=== PATIENT | male | born 1980 | race African-American/Black ===

== ENCOUNTER 2023-08-31 02:28 | Inpatient (IN) | payer BC ==
[~2023-08-31] VITALS: Ht 190.5 cm; Wt 120.5 kg
[2023-08-31 03:26] LABS: BASOPHILS % (AUTO) 0.8 % (0-1); EOSINOPHILS # (AUTO) 0.1 X10'3 (0-0.9); EOSINOPHILS % (AUTO) 1.3 % (0-6); HEMATOCRIT 41.5 % (42.0-52.0); LYMPHOCYTES # (AUTO) 1.4 X10'3 (1.1-4.8); LYMPHOCYTES % (AUTO) 27.2 % (21-51); MEAN CORPUSCULAR HEMOGLOBIN 32.5 PG (27.0-31.0); MEAN CORPUSCULAR HGB CONC 33.7 g/dL (33.0-36.5); MEAN CORPUSCULAR VOLUME 96.3 FL (78-98); MEAN PLATELET VOLUME 9.2 FL (7.4-10.4); MONOCYTES # (AUTO) 0.5 X10'3 (0-0.9); MONOCYTES % (AUTO) 9.5 % (2-12); NEUTROPHILS # (AUTO) 3.1 X10'3 (1.8-7.7); NEUTROPHILS % (AUTO) 61.2 % (42-75); PLATELET COUNT 185 X10'3 (140-440); RED BLOOD COUNT 4.31 X10'6 (4.70-6.10); RED CELL DISTRIBUTION WIDTH 12.7 % (11.5-14.5)
[2023-08-31 03:27] LABS: ALANINE AMINOTRANSFERASE 33 U/L (12-78); ALBUMIN 3.3 G/DL (3.4-5.0); ALBUMIN/GLOBULIN RATIO 0.8 (1.1-1.5); ALKALINE PHOSPHATASE 50 IU/L (46-116); ANION GAP 8 (8-16); ASPARTATE AMINO TRANSFERASE 21 U/L (10-37); BILIRUBIN,TOTAL 0.7 MG/DL (0.1-1.0); BLOOD UREA NITROGEN 13 MG/DL (7-18); BUN/CREATININE RATIO 11.1 (10.0-20.0); CALCIUM 8.7 MG/DL (8.5-10.1); CHLORIDE 107 MMOL/L (99-107); CREATININE 1.17 MG/DL (0.60-1.10); GLUCOSE 92 MG/DL (70-104); POTASSIUM 3.6 MMOL/L (3.5-5.1); SODIUM 144 MMOL/L (135-145); TOTAL CARBON DIOXIDE 28.8 MMOL/L (24-32); TOTAL PROTEIN 7.5 G/DL (6.4-8.2); eCRCL 99 ML/MIN; eGFR 69 ML/MIN
[2023-08-31] MEDS: nitroGLYCERIN 1gm ointment UD TP ONE (03:33)
[2023-08-31] MEDS: aspirin 325mg tablet PO ONE (03:34)
[2023-08-31] MEDS: morphine 4 MG/ML inj SYRINge IV ONE (03:38)
[2023-08-31] MEDS: ondansetron/PF 4mg/2ml inj IV ONE (03:39)
[2023-08-31 04:28] LABS: D-DIMER 2.53 MG/L FEU (0-0.50)
[2023-08-31] MEDS ORDERED: iohexol 350MG/ML 100ml bottle IV ONE (04:58)
[2023-08-31] MEDS: LORazepam 2 mg/ml vial IV ONE (05:22)
[2023-08-31] MEDS: hydrALAZINE 20mg/ml inj. IV ONE ×2 (06:10→06:48)
[2023-08-31] MEDS: furosemide 10 MG/1 ML 10ml inj IV ONE (06:37)
[2023-08-31] MEDS ORDERED: HYDROcodone/acetaminophen 10/325mg tab PO PRN (07:10)
[2023-08-31] MEDS ORDERED: magnesium 2GM in 50ml NS 50 ML IV PRN (07:10)
[2023-08-31] MEDS ORDERED: magnesium 4gm in 100ml NS 100 ML IV PRN (07:10)
[2023-08-31] MEDS ORDERED: magnesium hydroxide 30ml (MOM) UD suspension PO PRN (07:10)
[2023-08-31] MEDS ORDERED: mag hydrox/Alum hydrox/simeth 30ml oral suspension PO PRN (07:10)
[2023-08-31] MEDS ORDERED: potassium Cl 20 mEq SR tablet PO PRN (07:10)
[2023-08-31] MEDS ORDERED: HYDROcodone/acetaminophen 5mg/325mg tablet PO PRN (07:10)
[2023-08-31] MEDS ORDERED: ondansetron/PF 4mg/2ml inj IV PRN (07:10)
[2023-08-31] MEDS: PERFLUTREN PROTEIN-A MICROSPHR (Optison) 0.22 MG/ML 3ML VIAL IV ONE (07:10)
[2023-08-31] MEDS ORDERED: potassium Cl 40MEQ/1/2NS 520ml 520 ML IV PRN (07:10)
[2023-08-31] MEDS ORDERED: acetaminophen 325mg tablet PO PRN ×2 (07:10)
[2023-08-31] MEDS: K and/or MAG REPLACEMENT MC SCH (07:28)
[2023-08-31] MEDS: docusate sod 100mg capsule PO SCH (07:32)
[2023-08-31 10:00] VITALS: BP 136/81; PULSE 91; RESP 19; TEMP 98.8; O2SAT 100
[2023-08-31 11:00] VITALS: BP 136/81; PULSE 91; RESP 19; TEMP 98.8; O2SAT 100
[2023-08-31 14:00] VITALS: RESP 16; O2SAT 100
[2023-08-31 15:00] VITALS: BP 138/81; PULSE 82; RESP 18; TEMP 98.8; O2SAT 100
[2023-08-31] MEDS ORDERED: VERA40TA5 PO (15:00)
[2023-08-31 18:00] VITALS: BP 144/90; PULSE 58; RESP 14; TEMP 97.5; O2SAT 100
[2023-08-31] MEDS: enoxaparin 40mg/0.4ml syringe SQ SCH (21:20)
[2023-08-31 22:00] VITALS: BP 142/84; PULSE 79; RESP 18; TEMP 98.3; O2SAT 98
[2023-09-01 02:00] VITALS: BP 134/92; PULSE 81; RESP 13; TEMP 97.6; O2SAT 97
[2023-09-01 06:00] VITALS: BP 142/93; PULSE 72; RESP 13; TEMP 98.2; O2SAT 97
[2023-09-01 07:11] LABS: BASOPHILS % (AUTO) 0.6 % (0-1); EOSINOPHILS % (AUTO) 0.7 % (0-6); HEMATOCRIT 43.9 % (42.0-52.0); HEMOGLOBIN 14.8 g/dl (14.0-17.9); LYMPHOCYTES % (AUTO) 20.5 % (21-51); MEAN CORPUSCULAR HEMOGLOBIN 32.5 PG (27.0-31.0); MEAN CORPUSCULAR HGB CONC 33.8 g/dL (33.0-36.5); MEAN CORPUSCULAR VOLUME 96.3 FL (78-98); MEAN PLATELET VOLUME 9.3 FL (7.4-10.4); MONOCYTES # (AUTO) 0.4 X10'3 (0-0.9); MONOCYTES % (AUTO) 7.5 % (2-12); NEUTROPHILS # (AUTO) 3.3 X10'3 (1.8-7.7); NEUTROPHILS % (AUTO) 70.7 % (42-75); PLATELET COUNT 204 X10'3 (140-440); RED BLOOD COUNT 4.55 X10'6 (4.70-6.10); RED CELL DISTRIBUTION WIDTH 12.7 % (11.5-14.5); WHITE BLOOD COUNT 4.7 X10'3 (4.5-11.0)
[2023-09-01 07:38] LABS: ALANINE AMINOTRANSFERASE 23 U/L (12-78); ALBUMIN 3.3 G/DL (3.4-5.0); ALBUMIN/GLOBULIN RATIO 0.7 (1.1-1.5); ALKALINE PHOSPHATASE 53 IU/L (46-116); ANION GAP 11 (8-16); ASPARTATE AMINO TRANSFERASE 14 U/L (10-37); BILIRUBIN,TOTAL 0.9 MG/DL (0.1-1.0); BLOOD UREA NITROGEN 15 MG/DL (7-18); BUN/CREATININE RATIO 12.9 (10.0-20.0); CALCIUM 9.1 MG/DL (8.5-10.1); CHLORIDE 106 MMOL/L (99-107); CREATININE 1.16 MG/DL (0.60-1.10); GLUCOSE 133 MG/DL (70-104); MAGNESIUM 2.3 MG/DL (1.5-2.4); POTASSIUM 3.4 MMOL/L (3.5-5.1); SODIUM 143 MMOL/L (135-145); TOTAL CARBON DIOXIDE 26.2 MMOL/L (24-32); TOTAL PROTEIN 7.8 G/DL (6.4-8.2); eCRCL 100 ML/MIN; eGFR 84 ML/MIN
[2023-09-01 08:00] VITALS: RESP 13; O2SAT 17
[2023-09-01] MEDS ORDERED: HYDROchlorothiazide 12.5mg capsule PO SCH (08:00)
[2023-09-01] MEDS: HYDROchlorothiazide 25mg tablet PO ONE (09:15)
[2023-09-01] MEDS ORDERED: HYDR25TA4 PO (09:31)
[2023-09-01] MEDS: cloNIDine 0.1 mg tablet PO STA (10:20)
[2023-09-01] MEDS: potassium Cl 20 mEq SR tablet PO PRN (10:45)
[2023-09-01] MEDS ORDERED: CLON0.1T2 PO (11:52)
[2023-09-01] MEDS ORDERED: HYDR25TA5 PO (11:52)
== END 2023-09-01 12:43 | disposition home or self-care (01) | DRG 310 ==
LOC: ER 02:29 → ED HOLD 07:16 → EDBEDREQ 08:26 → PCU 3S 09:43
PROVIDERS: ADMIT Family Medicine; ATTEND Family Medicine
PROC: B32T1ZZ Computerized Tomography (CT Scan) of Left Pulmonary Artery using Low Osmolar Contrast (ICD-10-PCS; principal; 2023-08-31)
PROC: B3201ZZ Computerized Tomography (CT Scan) of Thoracic Aorta using Low Osmolar Contrast (ICD-10-PCS; 2023-08-31)
PROC: B32S1ZZ Computerized Tomography (CT Scan) of Right Pulmonary Artery using Low Osmolar Contrast (ICD-10-PCS; 2023-08-31)
DX: I49.3 Ventricular premature depolarization (principal); I50.9 Heart failure, unspecified; I11.0 Hypertensive heart disease with heart failure; R79.89 Other specified abnormal findings of blood chemistry; I27.20 Pulmonary hypertension, unspecified; Z79.899 Other long term (current) drug therapy; Z82.49 Family history of ischemic heart disease and other diseases of the circulatory system; Z83.3 Family history of diabetes mellitus
CPT/HCPCS: 36415; 71045; 71275; 80053; 83735; 84484; 85025; 85379; 87081; 93005; 93306; 93970; 99285; G0378; J0360; J1650; J1940; J2060; J3490; Q9967